=== PATIENT | female | born 1995 | race Hispanic/Latino ===

== ENCOUNTER 2020-07-16 22:11 | Emergency (ER) | payer BC, SELFPAY ==
[2020-07-16 22:15] VITALS: BP 142/92; PULSE 107; RESP 16; TEMP 35.8; O2SAT 100
[2020-07-16 22:26] VITALS: BP 142/92; PULSE 107; RESP 16; RESP 18; TEMP 35.8; O2SAT 100
--- NOTE | 2020-07-16 22:31 | ED.GENADULT ---
HPI - General Adult General Chief complaint: Unspecified Stated complaint: face swelling and pain Time Seen by Provider: 07/16/20 22:25 Source: patient Mode of arrival: ambulatory Limitations: no limitations History of Present Illness HPI narrative: 24-year-old female here with complaint of left facial swelling since yesterday evening. She denies any broken teeth or cavities no ear pain, no difficulty swallowing. She did have a rash across her face yesterday that she took some Benadryl for, that subsided the swelling persisted. She does have decreased saliva by report. Onset (ago): hour(s) Radiation: non-radiation Associated symptoms: denies other symptoms Treatments prior to arrival: none Related Data Allergies Allergy/AdvReac Type Severity Reaction Status Date / Time No Known Allergies Allergy Verified 07/16/20 22:33 Review of Systems Review of Systems: All systems reviewed & are unremarkable except as noted in HPI and below [facility] Social History Social History (Updated 07/16/20 @ 22:47 by Natasha Granda PA-C) Smoking status: Never smoker Alcohol intake: never Substance use: never Gender identity (if verbalized by the patient): Female Exam Const: General: healthy appearing, comfortable and no acute distress HENMT: Ears: external ears normal and TM's normal bilaterally Face and sinus: sinuses nontender and other (swelling of left jaw, no erythema, no palpable mass.) Mouth: Yes tongue normal, Yes oropharynx normal and Yes Abnormal salivary glands and ducts (left parotid duct germán) Teeth and gingiva: dentition normal (no painful teeth.) Throat: posterior oropharynx normal Eyes: Pupils: Equal, round and reactive pupils present Neck: Lymphatic: no lymphadenopathy noted Resp: Effort & Inspection: normal respiratory effort Skin: General skin exam: normal color Course Course Emergency Course: test done prior to CAT scan was positive, to the patient's surprise. She does not have any symptoms of at this time and has an OB to follow-up with. In regard to her left facial swelling will treat as a parotid duct occlusion. Vital Signs Vital signs: Vital Signs Temperature 35.8 C L 07/16/20 22:15 Pulse Rate 107 H 07/16/20 22:15 Respiratory Rate 16 07/16/20 22:15 Blood Pressure 142/92 H 07/16/20 22:15 Pulse Oximetry 100 07/16/20 22:15 Temperature 35.8 C L 07/16/20 22:15 Pulse Rate 107 H 07/16/20 22:15 Respiratory Rate 16 07/16/20 22:15 Blood Pressure 142/92 H 07/16/20 22:15 Pulse Oximetry 100 07/16/20 22:15 Medical Decision Making Vital Signs Vital Signs: Vital Signs Temperature 35.8 C L 07/16/20 22:15 Pulse Rate 107 H 07/16/20 22:15 Respiratory Rate 16 07/16/20 22:15 Blood Pressure 142/92 H 07/16/20 22:15 Pulse Oximetry 100 07/16/20 22:15 Temperature 35.8 C L 07/16/20 22:15 Pulse Rate 107 H 07/16/20 22:15 Respiratory Rate 16 07/16/20 22:15 Blood Pressure 142/92 H 07/16/20 22:15 Pulse Oximetry 100 07/16/20 22:15 Discharge Plan Discharge Clinical Impression: Calculus of parotid gland duct Qualifiers: Weeks of gestation: unspecified Qualified Code(s): Z34.90 - Encounter for supervision of normal , unspecified, unspecified trimester Patient Disposition: Home, Self-Care Condition: Stable Instructions: Antibiotic Form, (ED), Parotid Duct Obstruction (ED) Additional Instructions: Complete your biotics as prescribed. Purchase sour candy such as lemon drops and suck on liberally to increase saliva production. Follow your discharge instructions. Return to the ER should you have worsening swelling or heat to the area. 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 And begin taking vitamins. Prescriptions: New cephalexin 250 mg capsule 250 mg PO Q6H Qty: 20 RF: 0 Follow-up/Referrals: PHYSICIAN,ROOF SHINGLER [Primary Care Provider] -
[2020-07-16 23:00] LABS: Basophils Absolute Auto 0.1 K/mm3 (0.0-0.1); Basophils Percent Auto 0.4 % (0.2-1.2); Eosinophils Absolute Auto 0.1 K/mm3 (0-0.3); Eosinophils Percent Auto 0.8 % (0-4.4); Hematocrit 39.9 % (37.0-47.0); Hemoglobin 13.8 g/dL (12.0-15.0); Immature Granulocyte Absolute 0.05 K/mm3 (0.00-0.031); Immature Granulocyte Percent A 0.4 % (0-0.5); Lymphocytes Absolute Auto 3.41 K/mm3 (0.9-3.2); Lymphocytes Percent Auto 24.3 % (18.3-44.2); Mean Corpuscular HGB Conc 34.6 g/dl (32-36); Mean Corpuscular Hemoglobin 31.1 pg (26-34); Mean Corpuscular Volume 89.9 fl (80-100); Mean Platelet Volume 9.7 fl (7.4-10.4); Monocytes Absolute Auto 0.8 K/mm3 (0.1-0.6); Monocytes Percent Auto 5.8 % (2.6-8.5); Neutrophils Absolute Auto 9.6 K/mm3 (1.3-6.7); Neutrophils Percent Auto 68.3 % (45.5-73.1); Platelet Count Result 362 k/mm3 (150-375); Red Blood Count 4.44 M/mm3 (4.2-5.4); Red Cell Distribution Width 12.7 % (11.5-14.5); White Blood Count 14.1 K/mm3 (4.5-10.0)
[2020-07-16 23:12] LABS: Anion Gap 9 mmol/L (8-16); Blood Urea Nitrogen 6 mg/dL (7-17); Carbon Dioxide 25 mmol/L (22-30); Chloride 105 mmol/L (98-107); Estimated CRCL calculation 135 ml/min; Estimated Glomerular Filt Rate > 60; Glucose 105 mg/dL (65-105); Potassium 3.8 mmol/L (3.4-5.0); Sodium 139 mmol/L (137-145)
--- NOTE | 2020-07-16 23:13 | PC.NURSE ---
CT calls requesting test before they will do the CT of the neck. Pt made aware. Unable to void at present.
== END 2020-07-17 00:20 | disposition home or self-care (01) ==
PROVIDERS: Physician Assistant; Emergency Provider Emergency Medicine
DX: O99.611 Diseases of the digestive system complicating pregnancy, first trimester (principal); K11.5 Sialolithiasis; Z3A.00 Weeks of gestation of pregnancy not specified
CPT/HCPCS: 36415; 80048; 81025; 85025; 99283

== ENCOUNTER 2022-04-28 10:59 | Emergency (ER) | payer OTHER, SELFPAY ==
[2022-04-28 11:30] VITALS: BP 146/98; PULSE 110; RESP 16; TEMP 36.3; O2SAT 99
--- NOTE | 2022-04-28 12:18 | ED.URI ---
HPI - URI/Sore Throat General Chief Complaint: Upper Respiratory Infection Stated Complaint: Sore Throat Time Seen by Provider: 04/28/22 12:18 Source: patient, RN notes reviewed and old records reviewed Mode of arrival: ambulatory Limitations: no limitations History of Present Illness HPI Narrative: 26-year-old female presents to the [facility] with complaints of a sore throat for 2-3 days Has been taking Motrin and Tylenol for pain. MD elicited complaint: sore throat Related Data Allergies Allergy/AdvReac Type Severity Reaction Status Date / Time No Known Allergies Allergy Verified 04/28/22 11:58 Review of Systems Review of Systems: All systems reviewed & are unremarkable except as noted in HPI and below Constitutional: Constitutional: Reports no additional constitutional complaints Eyes: Eyes: Reports no additional eye complaints ENT: Reports as per HPI and Reports sore throat Cardiovascular: Cardiovascular: Reports no additional cardiovascular complaints, Denies chest pain and Denies dyspnea Respiratory: Respiratory: Reports no additional respiratory complaints, Denies chest congestion, Denies cough and Denies dyspnea Gastrointestinal: Gastrointestinal: Reports no additional gastrointestinal complaints, Denies abdominal pain, Denies nausea and Denies vomiting Musculoskeletal: Musculoskeletal: Reports no additional musculoskeletal complaints Integumentary/Breasts: Skin/Breast: Reports system reviewed and no additional complaints, except as docu Neurologic: Reports system reviewed and no additional complaints, except as documented Psychiatric: Psychiatric: Reports no additional psychiatric complaints Allergic/Immunologic: Allergic/Immunologic: Reports no additional allergic/immunologic complaints PMFSH Social History Social History Smoking status: Never smoker Alcohol intake: never Substance use: never Gender identity (if verbalized by the patient): Female Comments At the time of my signature, I reviewed and agree with the nursing past medical, surgical, social, and family history. There is no relevant family history pertinent to the patient complaint. Exam Const: General: cooperative, healthy appearing, comfortable, no acute distress, well developed, alert and well nourished Nutritional Appearance: well nourished Orientation/consciousness: patient oriented x3 Limitations: no limitations HENMT: Head: normal to inspection Ears: hearing grossly normal bilaterally and external ears normal Face/Nose/Sinus: Normal external nose present, Normal nares present, Normal nasal mucous membranes and turbinates present and normal facial exam Face and sinus: normal facial exam Mouth: Yes Normal oral and palatal mucosa present, Yes lip normal, Yes moist mucous membranes and Yes muffled voice (Hot potato voice) Throat: uvula midline, abnormal tonsil bilateral erythema, exudates and hypertrophy 3+ and posterior oropharynx abnormal erythema and exudates Eyes: General: appearance normal, both eyes and all related structures Alignment and Position: alignment normal Periorbital: periorbital findings normal Conjunctivae: conjunctivae normal Pupils: Equal, round and reactive pupils present EOM: EOMs intact bilaterally Neck: Neck: normal visual inspection, full ROM, no meningeal signs and lymphadenopathy (Submandibular bilateral) Chest: Chest palpation & inspection: normal inspection of the chest Resp: Effort & Inspection: normal respiratory effort and able to speak in complete sentences Auscultation: clear to auscultation bilaterally, no crackles, no rales, no rhonchi and no wheezes Cardio: Rate: regular rate Rhythm: regular rhythm Back/Spine/Pelvis: Cervical Spine: cervical ROM normal Thoracic/Lumbar Spine: No thoracic spinal tenderness Skin: General skin exam: normal color and no rashes or lesions noted Lesions: no lesions Rashes: no rashes Wounds: no wo
== END 2022-04-28 12:30 | disposition home or self-care (01) ==
PROVIDERS: Emergency Provider Nurse Practitioner
DX: J03.90 Acute tonsillitis, unspecified (principal)
CPT/HCPCS: 87081; 99213; G0463

== ENCOUNTER 2022-07-23 16:52 | Emergency (ER) | payer OTHER, SELFPAY ==
[2022-07-23] VITALS (7 sets, daily range): BP systolic 137–148; BP diastolic 77–96; PULSE 80–92; RESP 16–18; TEMP 36.6–36.9; O2SAT 96–100
--- NOTE | ~2022-07-23 | CT_ITS ---
EXAMINATION: CT abdomen pelvis w con DATE: 07/24/2022 00:12 INDICATION: RLQ abdominal pain TECHNIQUE: Computed tomography (CT) of the abdomen and pelvis was performed with 100 mL Omnipaque-350 intravenous contrast. Automated exposure control and iterative reconstruction technique were employe d. The dose-length product was 960.45 mGy-cm. COMPARISON: 12/16/2010. FINDINGS: Lower thorax: Unremarkable Liver: Normal. Biliary/Gallbladder: Gallbladder is absent. No bile duct dilation. Pancreas: No mass or duct dilation. Spleen: Normal. Adrenals:No mass. Kidneys: No mass, stone, or hydronephrosis. GI tract: Mild distal esophageal and gastric wall edema No small or large bowel dilation. Normal appe ndix. Mesentery/Peritoneum: No ascites, mass, or free air. Multiple prominent, borderline sized (up to 9 mm ) mesenteric lymph nodes. Retroperitoneum: No mass. Prominent periaortic lymph nodes, not pathologic by size criteria. Pelvis: Pelvic organs are within normal limits. Soft Tissues: Small uncomplicated fat-containing umbilical hernia. Bones: No acute osseous finding. IMPRESSION: Mild esophagitis/gastritis. Borderline mesenteric lymphadenopathy. Normal appendix. No CT evidence of nephrolithiasis or obstructive uropathy. Reviewed, dictated and finalized at location K. IMPRESSION: Mild esophagitis/gastritis. Borderline mesenteric lymphadenopathy. Normal appen dave. No CT evidence of nephrolithiasis or obstructive uropathy.
[2022-07-23 17:57] LABS: Basophils Absolute Auto 0.1 K/mm3 (0.0-0.1); Basophils Percent Auto 0.6 % (0.2-1.2); Eosinophils Absolute Auto 0.2 K/mm3 (0-0.3); Eosinophils Percent Auto 2.5 % (0-4.4); Hematocrit 41.5 % (37.0-47.0); Immature Granulocyte Absolute 0.02 K/mm3 (0.00-0.031); Immature Granulocyte Percent A 0.2 % (0-0.5); Lymphocytes Absolute Auto 3.06 K/mm3 (0.9-3.2); Lymphocytes Percent Auto 38.1 % (18.3-44.2); Mean Corpuscular HGB Conc 33.7 g/dl (32-36); Mean Corpuscular Hemoglobin 30.3 pg (26-34); Mean Corpuscular Volume 89.8 fl (80-100); Mean Platelet Volume 9.7 fl (7.4-10.4); Monocytes Absolute Auto 0.5 K/mm3 (0.1-0.6); Monocytes Percent Auto 6.4 % (2.6-8.5); Neutrophils Absolute Auto 4.2 K/mm3 (1.3-6.7); Neutrophils Percent Auto 52.2 % (45.5-73.1); Platelet Count Result 382 k/mm3 (150-375); Red Blood Count 4.62 M/mm3 (4.2-5.4); Red Cell Distribution Width 13.4 % (11.5-14.5)
[2022-07-23 18:06] LABS: Alanine Aminotransferase 40 U/L (6-35); Albumin Level 4.6 g/dL (3.5-5.1); Alkaline Phosphatase 94 U/L (38-126); Anion Gap 7 mmol/L (8-16); Aspartate Amino Transferase 23 U/L (14-36); Bilirubin,Total 0.3 mg/dL (0.2-1.3); Blood Urea Nitrogen 9 mg/dL (7-17); Calcium 8.6 mg/dL (8.4-10.2); Carbon Dioxide 27 mmol/L (22-30); Chloride 109 mmol/L (98-107); Estimated CRCL calculation 115 ml/min; Estimated Glomerular Filt Rate > 60; Glucose 101 mg/dL (65-110); Lipase 29 U/L (23-300); Potassium 3.8 mmol/L (3.4-5.0); Sodium 143 mmol/L (137-145)
[2022-07-23 18:12] LABS: Appearance Urine Cloudy (Clear); Bacteria Urine 3+ /hpf; Bilirubin Urine Negative (Negative); Blood Urine Negative (Negative); Color Urine Yellow (Yellow); Glucose Urine UA Negative (Negative); Ketones Urine Negative (Negative); Leukocyte Esterase Ur Negative LEU/UL (Negative); Need Manual Microscopic Reviewed; Nitrate Urine Negative (Negative); Non Pathogenic Casts 0-2; Protein Urine Negative (Negative); Specific Grav Ur 1.028 (1.001-1.035); Squamous Epithelial Cell Urine Many /hpf (Few); WBC Urine 0-5 /hpf
[2022-07-23 18:16] LABS: Add Urine Microscopic? YES
--- NOTE | 2022-07-23 23:09 | ED.ABDPAIN ---
HPI - Abdominal Pain General Chief Complaint: Abdominal Pain Stated Complaint: right sided abd pain Time Seen by Provider: 07/23/22 22:56 History of Present Illness HPI narrative: This is a 26-year-old female with history of cholecystitis status postcholecystectomy, who presents to the emergency department complaining of right lower quadrant abdominal pain. She describes the pain as sharp, intermittent, initially 8/10 now 2/10. She states this was initially associated with nausea and vomiting 2 days ago but that is since resolved. She denies other fevers chills or dysuria. Related Data Allergies Allergy/AdvReac Type Severity Reaction Status Date / Time No Known Allergies Allergy Verified 04/28/22 11:58 Review of Systems Review of Systems: CONSTITUTIONAL: Denies fever, chills, or sweats. EYES: Denies visual changes, redness, or discharge. ENT: Denies rhinorrhea, congestion, sore throat, or otalgia. CARDIOVASCULAR: Denies chest pain, palpitations, or edema. RESPIRATORY: Denies cough or dyspnea. GASTROINTESTINAL: Right lower quadrant abdominal pain denies nausea, vomiting, or diarrhea. GENITOURINARY: Denies dysuria or hematuria. SKIN: Denies rash or itching. MUSCULOSKELETAL: Denies back pain, joint pain, or myalgia. NEUROLOGIC: Denies headache, numbness, dizziness, or weakness. PSYCHIATRIC: Denies anxiety or depression. [facility] Surgical History Surgical History (Updated 07/23/22 @ 23:12 by Avel Beck MD) History of cholecystectomy Social History Social History Smoking status: Never smoker Alcohol intake: never Substance use: never Gender identity (if verbalized by the patient): Female Exam Narrative: GENERAL: Well-appearing, well-nourished, and in no acute distress. HEAD: Normocephalic, atraumatic. EYES: PERRLA and EOMI. ENT: Nares clear, no rhinorrhea or epistaxis. Mucous membranes moist. Oropharynx without tonsillar hypertrophy exudate or other lesions NECK: Supple. No adenopathy or masses. No carotid bruits or JVD CHEST: Clear to auscultation. No respiratory distress. No wheezes rales or rhonchi HEART: Regular rate and rhythm. No murmur heard. Normal peripheral pulses. ABDOMEN: Soft, nontender, nondistended, normal active bowel sounds. No CVA tenderness to palpation EXTREMITIES: Normal range of motion. No edema. SKIN: Warm, dry, no rash. NEURO: No focal deficits. Alert and oriented x3. PSYCH: Normal mood and affect. Course Course Emergency Course: 01:00 -CT demonstrates borderline mesenteric lymphadenopathy and changes consistent with esophagitis and gastritis without abnormal findings of the pelvis or the appendix. UA demonstrates a small amount of hematuria though CBC and chemistries are unremarkable. It is possible the patient passed a kidney stone. Given her symptoms are overall improving her vital signs are within normal limits, her exam is not concerning for acute abdomen and her labs are otherwise unremarkable, will discharge with recommendation for primary care follow-up. Discussed return and emergency precautions including signs/symptoms of appendicitis and ovarian torsion. The patient voiced understanding and is comfortable with the plan. All questions answered to her satisfaction. Vital Signs Vital signs: Vital Signs Temperature 98.4 F 07/23/22 17:01 Pulse Rate 92 07/23/22 17:01 Respiratory Rate 16 07/23/22 17:01 Blood Pressure 148/77 H 07/23/22 17:01 Pulse Oximetry 98 07/23/22 17:01 Oxygen Delivery Room Air 07/23/22 17:01 Temperature 98.4 F 07/23/22 17:01 Pulse Rate 92 07/23/22 17:01 Respiratory Rate 16 07/23/22 17:01 Blood Pressure 148/77 H 07/23/22 17:01 Pulse Oximetry 98 07/23/22 17:01 Oxygen Delivery Room Air 07/23/22 17:01 MDM - Abdominal Pain MDM Narrative Medical decision making narrative: Plan: Labs, imaging, test, reassess Differential Diagnosis Di
[2022-07-24 01:21] VITALS: BP 123/79; PULSE 80; RESP 18; TEMP 36.6; O2SAT 99
== END 2022-07-24 01:21 | disposition home or self-care (01) ==
PROVIDERS: Emergency Medicine; Emergency Provider Preventive Medicine Aerospace Medicine; PCP Family Medicine
DX: R10.31 Right lower quadrant pain (principal); Z90.49 Acquired absence of other specified parts of digestive tract
CPT/HCPCS: 36415; 74177; 80053; 81001; 81025; 83690; 85025; 99284; Q9967